=== PATIENT | male | born 1975 | race Caucasian/White ===

== ENCOUNTER → 2023-10-26 14:38 | Outpatient (REF) | payer BC, SELFPAY | LOC: RAD 14:38 | PROVIDERS: ATTENDING PHYSICIAN Nurse Practitioner; FAMILY PHYSICIAN Family Medicine | DX: R00.0 Tachycardia, unspecified (principal); R01.1 Cardiac murmur, unspecified; E78.00 Pure hypercholesterolemia, unspecified; R05.2 Subacute cough | CPT/HCPCS: 71046; 93306 ==

== ENCOUNTER → 2023-11-22 17:51 | Outpatient (REF) | payer BC, SELFPAY | LOC: RAD 17:51 | PROVIDERS: ATTENDING PHYSICIAN Internal Medicine Critical Care Medicine; FAMILY PHYSICIAN Nurse Practitioner Family | DX: Z87.01 Personal history of pneumonia (recurrent) (principal); R05.3 Chronic cough | CPT/HCPCS: 71046 ==